=== PATIENT | female | born 1960 | race Caucasian/White ===

== ENCOUNTER → 2022-12-14 10:06 | Outpatient (CLI) | payer OTHER, SELFPAY ==
--- NOTE | 2022-12-14 10:08 | DI.US.S_ITS ---
PROCEDURE: US PELVIC COMPLETE INDICATIONS: POSTMENOPAUSAL BLEEDING TECHNIQUE: Real-time scanning was performed of the pelvic organs, with image documentation. Additional endovaginal scanning was necessary due to incomplete visualization of the adnexal and endometrial structures by transabdominal scanning. COMPARISON: None. FINDINGS: Uterus: Uterus is retroverted and normal in size at 7.4 x 5.5 x 4.9 cm. The myometrium is heterogeneous. The endometrium measures 35.4 mm combined thickness. Endometrium is heterogeneous with increased vascularity. Visualized cervix is within normal limits. Anterior fundal intramural fibroid measuring 1.7 x 1.6 x 1.2 cm. Right mid intramural fibroid measuring 2.8 x 2.3 x 2.3 cm. Ovaries: Not well seen. No mass identified. Other: No pathologic free abdominal or pelvic fluid. IMPRESSION: 1. Abnormal endometrial thickening in this postmenopausal patient with bleeding. Endometrium measures up to 35 mm. Recommend endometrial biopsy if not yet performed. 2. The ovaries are not identified. We strive to produce accurate, complete, and clear reports of imaging services. To assist us in improving patient care, this report was composed using standard report templates and voice recognition software. Therefore, it may contain abnormal punctuation, insertions and/or omissions. Occasional wrong-word or sound-alike substitutions may occur. Though we review the report and make efforts to correct it, we do recommend that the report be read carefully in proper context to recognize any text inaccuracies. Dictated by: Rey Bourgeois M.D. on 12/14/2022 at 13:45 Approved by: Rey Bourgeois M.D. on 12/14/2022 at 13:57
== END ==
PROVIDERS: PCP Naturopath; Referring Provider Naturopath; Visit Provider Naturopath
DX: N95.0 Postmenopausal bleeding (principal); R93.89 Abnormal findings on diagnostic imaging of other specified body structures
CPT/HCPCS: 76830; 76856

== ENCOUNTER → 2023-01-19 08:03 | Outpatient (CLI) | payer OTHER, SELFPAY ==
--- NOTE | 2023-01-19 08:05 | DI.ECHO.S_ITS ---
[facility] +---------+ : : [address] [place] : : : : [id number] : : : : Phone: [phone]+ Echocardiogram Report + + :Name: BARBARA THAKUR Study Date: 01/19/2023 Height: 62 in : :[facility] ReadingLocation: Weight: 158 lb : : Gender: Female BSA: 1.7 m2 : :: 1960 Age: 62 yrs BP: 152/93 mmHg: :Reason For Study: Murmur : :Ordering Physician: SHELLIE, : :JUANITA Vazquez Performed By: Mei Washington : :Referring: JUANITA HENSLEY : + + Interpretation Summary 1) Normal left ventricular thickness, size, wall motion, and systolic function (EF 60-65%). 2) Normal right ventricular size and function. 3) There is mild aortic regurgitation. 4) No prior Echo available for comparison. Procedure: A two-dimensional transthoracic echocardiogram with color flow and Doppler was performed. The study quality was technically adequate. There is no prior echocardiogram noted for this patient. The patient was in normal sinus rhythm during the exam. Left Ventricle: The left ventricle is normal in size and wall thickness. The ejection fraction is estimated to be 60-65%. Left ventricular systolic function appears normal without focal wall motion abnormalities. Diastolic parameters suggest a relaxation abnormality of the left ventricle, consistent with probable normal filling pressures. Right Ventricle: The right ventricle is normal in size and function. Atria: The left atrial size is normal. Right atrial size is normal. The atrial septum is aneurysmal. There is no Doppler evidence for an interatrial shunt. Mitral Valve: The mitral valve is normal. There is no mitral valve stenosis. There is trace mitral regurgitation. Aortic Valve: The aortic valve is trileaflet. The aortic valve opens well. There is no aortic valve stenosis. There is mild aortic regurgitation. Tricuspid Valve: The tricuspid valve is normal. There is no tricuspid stenosis. There is mild tricuspid regurgitation. The right ventricular systolic pressure is estimated to be at least 30 mmHg based on an estimated right atrial pressure of 3 mm Hg. Pulmonic Valve: The pulmonic valve leaflets are thin and pliable; valve motion is normal. There is no pulmonic valvular stenosis. There is trace pulmonic regurgitation. Great Vessels: The aortic root is normal size. The ascending aorta is normal in size. The pulmonary artery is normal size. The IVC is of normal diameter and collapses greater than 50% with a sniff. This suggests a low right atrial pressure of 3 mm Hg. Pericardium/ Pleura There is no pericardial effusion. There is no pleural effusion. MMode/2D Measurements & Calculations LVIDd: 4.0 cm LVOT diam: 1.8 cm LVIDs: 2.4 cm Ao root diam: 3.1 cm FS: 40.0 % asc Aorta Diam: 3.2 cm IVSd: 0.70 cm LVPWd: 1.1 cm LV perez. diameter/BSA (cm/m^2): 2.3 LV sys. diameter/BSA (cm/m^2): 1.4 LA A2 area: 14.6 cm2 RA long axis: 5.1 cm LA A4 area: 15.5 cm2 RA area: 11.4 cm2 LA length (vol): 4.9 cm RA vol: 21.7 ml LA vol: 39.2 ml RA : 12.6 ml/m2 LA vol index: 22.7 ml/m2 IVC diam: 2.0 cm RVD1 (basal): 3.1 cm LVLs ap4: 6.2 cm LVLd ap2: 7.7 cm TAPSE_phl: 2.4 cm LVLs ap2: 6.1 cm Doppler Measurements & Calculations Ao V2 max: 185.0 cm/sec LVOT Max Jeremiah: 147.0 cm/sec Ao V2 mean: 125.0 cm/sec LV V1 max P.6 mmHg Ao max P.0 mmHg LV V1 VTI: 29.7 cm Ao mean P.0 mmHg KASSY(I,D): 2.0 cm2 Ao V2 VTI: 37.9 cm KASSY(V,D): 2.1 cm2 sev ratio: 0.78 KASSY indexed to BSA (cm^2/m^2): 1.2 MV E max jeremiah: 90.6 cm/sec TR max jeremiah: 258.0 cm/sec MV A max jeremiah: 84.4 cm/sec TR max P.6 mmHg MV E/A: 1.1 PA V2 max: 122.0 cm/sec Med Peak E' Jeremiah: 8.6 cm/sec PA V2 mean: 84.5 cm/sec E/E' med: 10.5 PA mean P.0 mmHg Lat Peak E' Jeremiah: 14.1 cm/sec PA pr(Accel): 16.0 mmHg E/E' lat: 6.4 E/e' average: 8.5 MV dec time: 0.24 sec SV(LVOT): 77.6 ml AV VR_phl: 0.79 KASSY(VTI)/BSA_phl: 0.91 Reading Physician:09:49 AM
== END ==
PROVIDERS: PCP Naturopath; Referring Provider Obstetrics & Gynecology Gynecologic Oncology; Visit Provider Obstetrics & Gynecology Gynecologic Oncology
DX: Z01.818 Encounter for other preprocedural examination (principal); R01.1 Cardiac murmur, unspecified; I08.2 Rheumatic disorders of both aortic and tricuspid valves
CPT/HCPCS: 93306